=== PATIENT | male | born 1995 ===

== ENCOUNTER 2017-07-16 12:00 | Emergency (ER) | payer OTHER ==
[2017-07-16] MEDS ORDERED: Lidocaine 1% Inj (20ml) IJ STA (12:11)
--- NOTE | 2017-07-16 12:16 | ED PDOC ---
Arrival/HPI - General Time Seen by Provider: 07/16/17 12:03 Historian: Patient - History of Present Illness Narrative History of Present Illness (Text): 07/16/17 12:11 22 y/o male, no significant pmh, nkda, last tetanus over 10 years ago, c/o head injury and laceration x 1 hour. Pt. stated that he accidentally hit by a piece of wood about 1 hour ago, sustained laceration, bleeding controlled, mild headache 2/10 but refused pain med, no neck or back pain, no palpitation, no rash, no other medical or psychological complaints. Past Medical History - Provider Review Nursing Documentation Reviewed: Yes Family/Social History - Physician Review Nursing Documentation Reviewed: Yes Family/Social History: Unknown Family HX Allergies/Home Meds Allergies/Adverse Reactions: Allergies No Known Allergies Allergy (Verified 07/16/17 12:07) Review of Systems - Review of Systems Constitutional: absent: Fatigue, Fevers Eyes: absent: Vision Changes ENT: absent: Hearing Changes Respiratory: absent: SOB, Cough Cardiovascular: absent: Chest Pain Gastrointestinal: absent: Abdominal Pain, Nausea, Vomiting Musculoskeletal: absent: Arthralgias, Back Pain Skin: Laceration. absent: Rash, Pruritis, Skin Lesions, Abscess Neurological: Headache. absent: Dizziness Psychiatric: absent: Anxiety, Depression Physical Exam Vital Signs Temp Pulse Resp BP Pulse Ox 07/16/17 12:08 98 F 55 L 18 134/76 98 - Systems Exam Head: Present: Tenderness, Contusion, Swelling, Laceration (visible approx. 6.5cm superficial scalp laceration noted on the parietal region, no bony tenderness. ). No: Ecchymosis, Abrasion Pupils: Present: PERRL Extroacular Muscles: Present: EOMI Conjunctiva: Present: Normal Mouth: Present: Moist Mucous Membranes Pharnyx: No: ERYTHEMA, EXUDATE, TONSILS ENLARGED Nose (External): Present: Atraumatic. No: Abrasion, Contusion, Laceration Nose (Internal): Present: Normal Inspection, No Active Bleeding. No: Rhinorrhea , Septal Hematoma, Epistaxis Neck: Present: Normal Range of Motion, Trachea Midline. No: Meningeal Signs, MIDLINE TENDERNESS, Paraspinal Tenderness, Lymphadenopathy Respiratory/Chest: Present: Clear to Auscultation, Good Air Exchange. No: Respiratory Distress, Accessory Muscle Use Cardiovascular: Present: Regular Rate and Rhythm, Normal S1, S2. No: Murmurs Abdomen: No: Tenderness, Distention, Peritoneal Signs, Rebound, Guarding Back: Present: Normal Inspection Upper Extremity: Present: Normal Inspection. No: Cyanosis, Edema Lower Extremity: Present: Normal Inspection. No: Edema Neurological: Present: GCS=15, CN II-XII Intact, Speech Normal, Motor Func Grossly Intact, Gait Normal, Memory Normal Skin: Present: Warm, Dry, Normal Color. No: Rashes Psychiatric: Present: Alert, Oriented x 3, Normal Insight, Normal Concentration Medical Decision Making ED Course and Treatment: 07/16/17 12:14 -CT head -PRN pain med/tdap -Wound irrigate and clean, will staple -sensation intact, motor 5/5, wound irrigated with normal saline with 1000cc, clean with betadine, 1% lidocaine injected 1cc for anestheetic, sterile procedure, 3-0 prolene made 7 stiches with 10 reinaldo, wound well approximated, hemostasis obtained, bacitracin and gauze dressing, wound healing well and dry, sensation intact, motor 5/5, neurovascular intact, total procedure time 30 minutes 07/16/17 12:50 -CT head: No acute intracranial findings -Pt. is nauseous after offering tdap, will order zofran. 07/16/17 13:53 -Pt. is asmptomatic now, feeling much better, request to be discharged home. -Discharge home with motrin, reinaldo and sutures need to be removed by day 7 , bacitracin oinment, ice pack, follow up with your own pmd within 2 days, return to the ER for any new or worsening signs or symptoms. - RAD Interpretation Radiology Orders: 07/16/17 12:11 HEAD W/O CONTRAST [CT] Stat PROCEDURE: CT HEAD WITHOUT CONTRAST. HISTORY: head injury ,laceration, headache COMPARISON: None available. TECHNIQUE: Axial computed tomography images were obtained through the head/brain without intravenous contrast. Radiation dose: Total exam DLP = 904 mGy-cm. This CT exam was performed using one or more of the following dose reduction techniques: Automated exposure control, adjustment of the mA and/or kV according to patient size, and/or use of iterative reconstruction technique. FINDINGS: HEMORRHAGE: No intracranial hemorrhage. BRAIN: No mass effect or edema. No atrophy or chronic microvascular ischemic changes. VENTRICLES: Unremarkable. No hydrocephalus. CALVARIUM: There is a laceration over the right parietal scalp. PARANASAL SINUSES: Unremarkable as visualized. No significant inflammatory changes. MASTOID AIR CELLS: Unremarkable as visualized. No inflammatory changes. OTHER FINDINGS: None. IMPRESSION: No acute intracranial findings Technical Engineer: Radiologist - Medication Orders Current Medication Orders: Discontinued Medications Acetaminophen (Tylenol 325mg Tab) 650 mg PO STAT STA Stop: 07/16/17 12:12 Last Admin: 07/16/17 12:29 Dose: 650 mg MAR Pain/Vitals Document 07/16/17 12:29 LA (Rec: 07/16/17 12:38 LA [id number]) Pain Reassessment Is This A Pain ReAssessment? No Sleep Is patient sleeping during reassessment? No Presence of Pain Presence of Pain Yes Pain Scale Used Pain Scale Used Numeric Location Left, Right or Bilateral Right Pain Location Body Fashion Buyer Intensity 6 Scale Used Numeric Pain Behavior Guarding Lidocaine HCl (Lidocaine 1% (20ml)) 1 ml IJ STAT STA Stop: 07/16/17 12:12 Last Admin: 07/16/17 12:38 Dose: 1 ml Ondansetron HCl (Zofran Odt) 4 mg PO STAT STA Stop: 07/16/17 12:51 Last Admin: 07/16/17 13:18 Dose: 4 mg Tetanus/Reduced Diphtheria/Acell Pertussis (Boostrix Vaccine Inj) 0.5 ml IM .ONCE ONE Stop: 07/16/17 12:42 Last Admin: 07/16/17 12:50 Dose: 0.5 ml [facility] Immunization Data Document 07/16/17 12:50 [place] (Rec: 07/16/17 12:50 TN [id number]) Immunization Data Vaccine Information Sheet Given Yes - PA / [employer]ST[employer] BACK [employer]KER / Resident Statement MD/DO has reviewed & agrees with the documentation as recorded. Disposition/Present on Arrival - Present on Arrival Any Indicators Present on Arrival: No History of DVT/PE: No History of Uncontrolled Diabetes: No Urinary Catheter: No History of Decub. Ulcer: No - Disposition Have Diagnosis and Disposition been Completed?: Yes Diagnosis: Head injury, Scalp laceration Disposition: HOME/ ROUTINE Disposition Time: 12:16 Patient Plan: Discharge Patient Problems: Current Active Problems Problem Status Onset Head injury Acute Scalp laceration Acute Condition: IMPROVED Additional Instructions: -Discharge home with motrin, reinaldo and sutures need to be removed by day 7 , bacitracin oinment, ice pack, follow up with your own pmd within 2 days, return to the ER for any new or worsening signs or symptoms. Prescriptions: Bacitracin Ointment [Bacitracin] 1 appful TOP BID #15 g Ibuprofen [Motrin] 600 mg PO TID #30 tab Referrals: PCP,NO [Primary Care Provider] - Follow up with primary [facility] [place] - Follow up with primary Jimbo Hernandez MD [Staff Provider] - Follow up with primary Forms: WORK NOTE
--- NOTE | 2017-07-16 12:40 | CT ---
PROCEDURE: CT HEAD WITHOUT CONTRAST. HISTORY: head injury ,laceration, headache COMPARISON: None available. TECHNIQUE: Axial computed tomography images were obtained through the head/brain without intravenous contrast. Radiation dose: Total exam DLP = 904 mGy-cm. This CT exam was performed using one or more of the following dose reduction techniques: Automated exposure control, adjustment of the mA and/or kV according to patient size, and/or use of iterative reconstruction technique. FINDINGS: HEMORRHAGE: No intracranial hemorrhage. BRAIN: No mass effect or edema. No atrophy or chronic microvascular ischemic changes. VENTRICLES: Unremarkable. No hydrocephalus. CALVARIUM: There is a laceration over the right parietal scalp. PARANASAL SINUSES: Unremarkable as visualized. No significant inflammatory changes. MASTOID AIR CELLS: Unremarkable as visualized. No inflammatory changes. OTHER FINDINGS: None. IMPRESSION: No acute intracranial findings
[2017-07-16] MEDS ORDERED: TDAP Vaccine 0.5 mL Syr IM ONE (12:41)
[2017-07-16 13:20] VITALS: RESP 18; TEMP 98; BMI 24.0
[2017-07-16 14:18] VITALS: BP 135/80; PULSE 61; O2SAT 100
== END 2017-07-16 14:15 | disposition home or self-care (01) ==
LOC: ED 12:00
DX: S01.01XA Laceration without foreign body of scalp, initial encounter (principal); W22.8XXA Striking against or struck by other objects, initial encounter; Z23 Encounter for immunization

== ENCOUNTER 2017-07-28 14:21 | Emergency (ER) | payer OTHER ==
[2017-07-28 14:22] VITALS: BMI 24.0
[2017-07-28 14:33] VITALS: PULSE 60; RESP 18; TEMP 97.8; O2SAT 99
--- NOTE | 2017-07-28 14:41 | ED PDOC ---
Arrival/HPI - General Chief Complaint: Suture/Staple Removal Time Seen by Provider: 07/28/17 14:40 Historian: Patient - History of Present Illness Narrative History of Present Illness (Text): 07/28/17 14:41 This 22 yo male [facility] department for staple and stitches removal. Patient had a scalp laceration repaired x 11 days ago. Patient denies new somatic complains. Time/Duration: Other (see hpi) Context: Home Past Medical History - Provider Review Nursing Documentation Reviewed: Yes - Psychiatric Hx Substance Use: No Family/Social History - Physician Review Nursing Documentation Reviewed: Yes Family/Social History: Other (noncontributory) Smoking Status: Never Smoked Hx Alcohol Use: No Hx Substance Use: No Allergies/Home Meds Allergies/Adverse Reactions: Allergies No Known Allergies Allergy (Verified 07/28/17 14:33) Home Medications: Home Meds Medication Instructions Recorded Confirmed No Known Home Med 07/28/17 07/28/17 Review of Systems - Review of Systems Constitutional: Normal. absent: Fatigue, Weight Change, Fevers Eyes: Normal ENT: Normal Respiratory: Normal Cardiovascular: Normal Gastrointestinal: Normal Genitourinary Male: Normal Musculoskeletal: Normal Skin: Other (see hpi) Neurological: Normal Endocrine: Normal Hemo/Lymphatic: Normal Psychiatric: Normal Physical Exam Vital Signs Temp Pulse Resp BP Pulse Ox 07/28/17 14:30 97.8 F 60 18 105/70 99 Temperature: Afebrile Blood Pressure: Normal Pulse: Regular Respiratory Rate: Normal Appearance: Positive for: Well-Appearing, Non-Toxic, Comfortable Pain Distress: None Mental Status: Positive for: Alert and Oriented X 3 - Systems Exam Head: Present: Normocephalic, Other ((+) scalp laceration repaired. (+) 9 reinaldo, and 7 sutures were visualized. No dehiscence. No drainage. No cellulitis. No raccoon sign. No lee signs) Pupils: Present: PERRL, Other (no hyphema) Extroacular Muscles: Present: EOMI. No: Entrapment Conjunctiva: Present: Normal Ears: Present: Normal, NORMAL TM Mouth: Present: Moist Mucous Membranes Neck: Present: Normal Range of Motion Upper Extremity: Present: Normal Inspection, Normal ROM Lower Extremity: Present: Normal Inspection, Normal ROM Neurological: Present: GCS=15, CN II-XII Intact, Speech Normal, Motor Func Grossly Intact, Normal Sensory Function, Normal Cerebellar Funct, Gait Normal, Memory Normal Skin: Present: Warm, Dry, Normal Color. No: Rashes Psychiatric: Present: Alert, Oriented x 3, Normal Insight, Normal Concentration Medical Decision Making ED Course and Treatment: 07/28/17 15:14 Re-evaluation. Patient feels better. Discussed results and plan with patient who expresses understanding. All questions answered and there is agreement with the plan to discharge home with instructions. Patient stable for discharge. Return if symptoms persist or worsen. Re-evaluation Time: 15:14 Reassessment Condition: Re-examined, Improved - Procedure PROCEDURE NOTE (Text): 07/28/17 15:15 PROCEDURE: SUTURE REMOVAL Performed by the emergency provider Location: left scalp Length: 15 cm Distal CMS: Normal. No deficits. Neurovascularly intact. Preparation: The wound was cleaned with NS and [place]. The area was prepped and draped in the usual sterile fashion. Procedure: In total, 7 sutures and 9 reinaldo were removed. Post-Procedure: Good closure and hemostasis. The patient tolerated the procedure well and there were no complications. CSM remains intact. Patient stated one staple had fell off. Disposition/Present on Arrival - Present on Arrival Any Indicators Present on Arrival: No History of DVT/PE: No History of Uncontrolled Diabetes: No Urinary Catheter: No History of Decub. Ulcer: No History Surgical Site Infection Following: None - Disposition Have Diagnosis and Disposition been Completed?: Yes Diagnosis: Encounter for wound re-check, Encounter for removal of sutures, Encounter for staple removal Disposition: HOME/ ROUTINE Disposition Time: 15:17 Patient Plan: Discharge Patient Problems: Current Active Problems Problem Status Onset Encounter for removal of sutures Acute Encounter for staple removal Acute Encounter for wound re-check Acute Condition: GOOD Discharge Instructions (ExitCare): Staple Removal, Stitches Removal Additional Instructions: Call private doctor for follow up visit in 1-2 days. Take medication as instructed. Clean wound with soap and water only. Return to emergency if symptoms worsen. Referrals: [facility] [Outside] - Follow up with primary [facility] [Outside] - Follow up with primary Forms: [employer] (Faroese)
[2017-07-28 15:34] VITALS: BP 110/78
== END 2017-07-28 15:34 | disposition home or self-care (01) ==
LOC: ED 14:21
DX: S01.01XD Laceration without foreign body of scalp, subsequent encounter (principal)